=== PATIENT | female | born 1995 | race Caucasian/White ===

== ENCOUNTER 2020-09-09 00:22 | Emergency (ER) | payer OTHER ==
[~2020-09-09] VITALS: Ht 160 cm; Wt 58.0 kg
[2020-09-09 00:24] VITALS: BP 133/81
[2020-09-09 01:42] LABS: BASOPHILS % (AUTO) 0 % (0-1); EOSINOPHILS % (AUTO) 1 % (1-7); LYMPHOCYTES % (AUTO) 17 % (22-44); MEAN CORPUSCULAR HEMOGLOBIN 28.7 pg (27.0-34.8); MEAN CORPUSCULAR HGB CONC 33.1 g/dL (32.4-35.8); MEAN PLATELET VOLUME 9.7 fL (7.4-10.4); MONOCYTES % (AUTO) 6 % (2-9); NEUTROPHILS % (AUTO) 76 % (42-75); PLATELET COUNT 217 x10^3/uL (130-400); RED BLOOD COUNT 4.62 x10^6/uL (3.82-5.3); RED CELL DISTRIBUTION WIDTH 13.9 % (9.6-15.2)
[2020-09-09 01:44] LABS: MD NO
[2020-09-09 01:51] LABS: ALANINE AMINOTRANSFERASE 16 U/L (12-78); ALBUMIN 4.2 g/dL (3.4-5.0); ANION GAP 4 mmol/L (5-15); CALCIUM 8.8 mg/dL (8.5-10.1); CHLORIDE 109 mmol/L (98-107)
[2020-09-09 01:55] LABS: SALICYLATE LEVEL < 1.7 mg/dL (2.8-20.0)
[2020-09-09 02:02] LABS: ALKALINE PHOSPHATASE 50 U/L (45-117); BILIRUBIN,TOTAL 0.4 mg/dL (0.2-1.0); TOTAL PROTEIN 7.2 g/dL (6.4-8.2)
--- NOTE | 2020-09-09 02:11 | NUR ---
Delay in pt note d/t pt care. Pt a&o x4. Answering questions appropriately. Speaking in clear, full sentences. Mother is tearful, calm, cooperative. States that she has been having difficult time at home with young daughter and has been dealing with increased depression. Pt states she is also having a difficult time getting a hold of family/friends who would be able to help with daughter while she is being evaluated in ED. States, "I'm having a really hard time and didn't know where else to go." Daughter is acting very appropriately for developmental age. Appears well-cared for. Mother is acting appropriately in caring for daughter. Provider aware.
[2020-09-09 04:03] LABS: AMPHETAMINE SCREEN, URINE Negative (Negative); BARBITURATE SCREEN, URINE Negative (Negative); BENZODIAZEPINE SCREEN, URINE Negative (Negative); CANNABINOID SCREEN, URINE Negative (Negative); COCAINE SCREEN, URINE Negative (Negative); METHADONE SCREEN, URINE Negative (Negative); OPIATE SCREEN, URINE Negative (Negative)
--- NOTE | 2020-09-09 06:00 | NUR ---
Tele psych in progress
--- NOTE | 2020-09-09 07:22 | NUR ---
Pt remains a&o x4, answering questions appropriately. Daughter continues to act appropriately for developmental age. Plan per psych team and ED MD is to have pt's friend/family assume care. Pt states her family is coming up today from [place] area to assist pt through difficult time. States her friend will pick her up and stay with her until friend arrives. All members of care team agreeable to POC
--- NOTE | 2020-09-09 07:55 | NUR ---
PT RESTING IN ROOM W/ CALL LIGHT IN REACH AND DAUGHTER AT BEDSIDE. STATES HER FRIEND IS CLOSE AND WILL BE HERE SOON. DENIES FURTHER NEEDS AT THIS TIME. RESP EVEN AND UNLABORED, ELMO.
--- NOTE | 2020-09-09 08:08 | NUR ---
PT PICKED UP BY FRIEND DARWIN WHO IS TO HELP PT UNTIL FAMILY ARRIVES FROM [place] LATER TODAY. PT VERBALIZED UNDERSTANDING OF DC INSTRUCTIONS. AMBULATORY W/ A STEADY GAIT. RESP EVEN AND UNLABORED, NADN.
== END 2020-09-09 08:11 | disposition home or self-care (01) ==
LOC: ED 01:20
DX: F32.1 Major depressive disorder, single episode, moderate (principal); R45.851 Suicidal ideations
CPT/HCPCS: 36415; 80053; 80307; 84443; 84703; 85025; 99283